=== PATIENT | female | born 1995 | race Two or more races ===

== ENCOUNTER → 2017-01-03 | Outpatient (REF) | payer OTHER | LOC: M SFHCLERA 12:44 | PROVIDERS: ATTEND Physician Assistant | DX: R30.0 Dysuria (principal) ==

== ENCOUNTER 2018-05-29 11:13 | Emergency (ER) | payer OTHER ==
[2018-05-29 11:52] LABS: KETONE, URINE AUTO RFX NEGATIVE (NEGATIVE); LEUKOCYTE ESTERASE UR AUTO RFX NEGATIVE (NEGATIVE); MUCUS, URINE RFX SMALL (NEGATIVE); NITRITE, URINE AUTO RFX NEGATIVE (NEGATIVE); RBC, URINE AUTO RFX 1 /HPF (0-3); SPECIFIC GRAVITY UR AUTO RFX 1.026 (1.002-1.035); SQUAM EPITHELIAL CELL UR AURFX 1 /HPF (0-6); WBC, URINE AUTO RFX 1 /HPF (0-3)
[2018-05-29 12:59] LABS: BASO % 0.7 % (0.0-1.0); EOS % 0.5 % (0.0-3.0); HEMATOCRIT 38.5 % (36.0-47.0); HEMOGLOBIN 12.6 g/dl (12.0-15.5); IMMATURE GRANULOCYTE % 0.3 % (0-3.0); LYMPH % 33.7 % (24.0-44.0); MEAN CORPUSCULAR HGB CONC 32.7 g/dl (32.0-36.5); MEAN CORPUSCULAR VOLUME 88.7 fl (80.0-96.0); MONO # 0.4 10^3/uL (0.0-0.8); MONO % 6.8 % (0.0-5.0); NEUTROPHILS # 3.5 10^3/uL (1.8-7.7); PLATELET COUNT, AUTOMATED 380 10^3/uL (150-450); RED BLOOD COUNT 4.34 10^6/uL (4.00-5.40); RED CELL DISTRIBUTION WIDTH 13.5 % (11.5-14.5)
[2018-05-29] MEDS: METOCLOPRAMIDE INJ 10MG/2ML VIAL (J2765) IV (13:08)
[2018-05-29] MEDS: ACETAMINOPHEN 325 MG TAB PO (13:09)
[2018-05-29] MEDS: diphenhydrAMINE INJ 50MG/ML VIAL (J1200) IV (13:09)
[2018-05-29] MEDS: NS 1,000 ML IV (13:10)
[2018-05-29 13:22] LABS: ANION GAP 6 MEQ/L (8-16); BLOOD UREA NITROGEN 11 MG/DL (7-18); CALCIUM LEVEL 9.4 MG/DL (8.5-10.1); CARBON DIOXIDE LEVEL 29 MEQ/L (21-32); CHLORIDE LEVEL 106 MEQ/L (98-107); CREATININE FOR GFR 0.68 MG/DL (0.55-1.30); GLOMERULAR FILTRATION RATE > 60.0 (>60); GLUCOSE, FASTING 74 MG/DL (70-100); POTASSIUM SERUM 3.7 MEQ/L (3.5-5.1); SODIUM LEVEL 141 MEQ/L (136-145)
[2018-05-29 15:29] LABS: CHLAMYDIA DNA AMPLIFICATION NEGATIVE (NEGATIVE); GC DNA AMPLIFICATION NEGATIVE (NEGATIVE)
== END 2018-05-29 15:07 | disposition home or self-care (01) ==
LOC: M ED 11:13
DX: N93.8 Other specified abnormal uterine and vaginal bleeding (principal); Z97.5 Presence of (intrauterine) contraceptive device; N83.291 Other ovarian cyst, right side; N80.9 Endometriosis, unspecified; Z88.6 Allergy status to analgesic agent
CPT/HCPCS: J1200

== ENCOUNTER 2018-07-25 11:16 | Emergency (ER) | payer OTHER ==
[2018-07-25 12:09] LABS: HEMATOCRIT 38.7 % (36.0-47.0); HEMOGLOBIN 12.7 g/dl (12.0-15.5); MEAN CORPUSCULAR HEMOGLOBIN 29.5 pg (27.0-33.0); MEAN CORPUSCULAR HGB CONC 32.8 g/dl (32.0-36.5); MEAN CORPUSCULAR VOLUME 89.8 fl (80.0-96.0); PLATELET COUNT, AUTOMATED 378 10^3/uL (150-450); RED BLOOD COUNT 4.31 10^6/uL (4.00-5.40); RED CELL DISTRIBUTION WIDTH 13.5 % (11.5-14.5); WHITE BLOOD COUNT 7.8 10^3/uL (4.0-10.0)
[2018-07-25 12:16] LABS: KETONE, URINE AUTO RFX NEGATIVE (NEGATIVE); LEUKOCYTE ESTERASE UR AUTO RFX NEGATIVE (NEGATIVE); MUCUS, URINE RFX SMALL (NEGATIVE); NITRITE, URINE AUTO RFX NEGATIVE (NEGATIVE); RBC, URINE AUTO RFX 0 /HPF (0-3); SPECIFIC GRAVITY UR AUTO RFX 1.025 (1.002-1.035); SQUAM EPITHELIAL CELL UR AURFX 4 /HPF (0-6); WBC, URINE AUTO RFX 1 /HPF (0-3)
[2018-07-25 12:34] LABS: ANION GAP 8 MEQ/L (8-16); BLOOD UREA NITROGEN 12 MG/DL (7-18); CALCIUM LEVEL 9.8 MG/DL (8.5-10.1); CARBON DIOXIDE LEVEL 24 MEQ/L (21-32); CHLORIDE LEVEL 107 MEQ/L (98-107); CREATININE FOR GFR 0.62 MG/DL (0.55-1.30); GLOMERULAR FILTRATION RATE > 60.0 (>60); GLUCOSE, FASTING 82 MG/DL (70-100); SODIUM LEVEL 139 MEQ/L (136-145)
[2018-07-25 13:48] LABS: CHLAMYDIA DNA AMPLIFICATION NEGATIVE (NEGATIVE); GC DNA AMPLIFICATION NEGATIVE (NEGATIVE)
== END 2018-07-25 14:01 | disposition home or self-care (01) ==
LOC: M ED 11:16
DX: B37.3 Candidiasis of vulva and vagina (principal); N83.01 Follicular cyst of right ovary; N80.9 Endometriosis, unspecified; Z88.8 Allergy status to other drugs, medicaments and biological substances; Z79.2 Long term (current) use of antibiotics
CPT/HCPCS: 76856

== ENCOUNTER → 2018-09-05 | Outpatient (REF) | payer OTHER ==
[2018-09-05 13:36] LABS: APPEARANCE, URINE CLEAR (CLEAR); BACTERIA, URINE AUTO NEGATIVE (NEGATIVE); BILIRUBIN, URINE AUTO NEGATIVE (NEGATIVE); BLOOD, URINE BLOOD NEGATIVE (NEGATIVE); COLOR, URINE YELLOW (YELLOW); GLUCOSE, URINE (UA) AUTO NEGATIVE (NEGATIVE); KETONE, URINE AUTO NEGATIVE (NEGATIVE); LEUKOCYTE ESTERASE, URINE AUTO NEGATIVE (NEGATIVE); MUCUS, URINE SMALL (NEGATIVE); NITRITE, URINE AUTO NEGATIVE (NEGATIVE); PROTEIN, URINE AUTO NEGATIVE (NEGATIVE); RBC, URINE AUTO 1 /HPF (0-3); SPECIFIC GRAVITY URINE AUTO 1.018 (1.002-1.035); SQUAMOUS EPITHELIAL CELL UR AU 2 /HPF (0-6); UROBILINOGEN, URINE AUTO 0.2 mg/dL (0.0-2.0); WBC, URINE AUTO 1 /HPF (0-3)
== END ==
LOC: M LAB REF 13:15
DX: N39.0 Urinary tract infection, site not specified (principal)

== ENCOUNTER → 2018-11-05 | Outpatient (CLI) | payer OTHER ==
[~2018-11-05] MED LIST: CIPR-249 PO; DIFL150T PO; DOXY200C PO; PYRI1TAB5 PO
[2018-11-05 18:08] LABS: BASO # 0.1 10^3/uL (0.0-0.2); BASO % 1.1 % (0.0-1.0); EOS # 0.1 10^3/uL (0.0-0.50); EOS % 0.8 % (0.0-3.0); HEMATOCRIT 37.9 % (36.0-47.0); HEMOGLOBIN 12.3 g/dl (12.0-15.5); LYMPH # 2.5 10^3/uL (1.5-6.5); LYMPH % 31.8 % (24.0-44.0); MEAN CORPUSCULAR HEMOGLOBIN 29.7 pg (27.0-33.0); MEAN CORPUSCULAR HGB CONC 32.5 g/dl (32.0-36.5); MEAN CORPUSCULAR VOLUME 91.5 fl (80.0-96.0); MONO # 0.4 10^3/uL (0.0-0.8); MONO % 5.3 % (0.0-5.0); NEUTROPHILS # 4.8 10^3/uL (1.8-7.7); NEUTROPHILS % 60.6 % (36.0-66.0); PLATELET COUNT, AUTOMATED 475 10^3/uL (150-450); RED BLOOD COUNT 4.14 10^6/uL (4.00-5.40)
[2018-11-05 18:15] LABS: ALBUMIN 3.6 GM/DL (3.2-5.2); ALT/SGPT 14 U/L (12-78); BILIRUBIN,TOTAL 0.5 MG/DL (0.2-1.0); BLOOD UREA NITROGEN 8 MG/DL (7-18); CALCIUM LEVEL 9.6 MG/DL (8.5-10.1); CARBON DIOXIDE LEVEL 29 MEQ/L (21-32); CHLORIDE LEVEL 104 MEQ/L (98-107); CREATININE FOR GFR 0.65 MG/DL (0.55-1.30); GLOMERULAR FILTRATION RATE > 60.0 (>60); GLUCOSE, FASTING 85 MG/DL (70-100); POTASSIUM SERUM 4.6 MEQ/L (3.5-5.1); RHEUMATOID FACTOR QUANT < 10.0 IU/ML (<15.0); SODIUM LEVEL 137 MEQ/L (136-145); THYROID STIMULATING HORMONE 0.631 uIU/ML (0.358-3.740); THYROXINE (T4) 9.8 UG/DL (4.5-12.0); TOTAL PROTEIN 7.8 GM/DL (6.4-8.2)
[2018-11-05 18:17] LABS: THYROGLOBULIN ANTIBODY 20.1 U/ML (<60.0); THYROID PEROXIDASE ANTIBODY < 28.0 U/ML (<60.0); TOTAL T3 114.3 NG/DL (60.0-181.0)
[2018-11-05 19:03] LABS: ERYTHROCYTE SEDIMENTATION RATE 36 mm/hr (0-20)
[2018-11-07 10:16] LABS: ANTINUCLEAR ANTIBODIES DIRECT Negative (Negative)
[2018-11-14 00:10] LABS: IGE RECEPTOR ABY 1 <2.4 (<10)
== END ==
LOC: M SMT 15:14
PROVIDERS: ATTEND Allergy & Immunology Allergy
DX: L50.1 Idiopathic urticaria (principal)

== ENCOUNTER → 2018-12-19 | Outpatient (REF) | payer OTHER ==
[~2018-12-19] MED LIST changes: +AMPI500C9; +CETI10TA; +NITR100C2; +PHEN-501
[2018-12-19 17:52] LABS: APPEARANCE, URINE CLOUDY (CLEAR); BACTERIA, URINE AUTO 1+ (NEGATIVE); BILIRUBIN, URINE AUTO NEGATIVE (NEGATIVE); BLOOD, URINE BLOOD NEGATIVE (NEGATIVE); CALCIUM OXALATE CRYSTALS SMALL; COLOR, URINE YELLOW (YELLOW); GLUCOSE, URINE (UA) AUTO NEGATIVE (NEGATIVE); KETONE, URINE AUTO NEGATIVE (NEGATIVE); LEUKOCYTE ESTERASE, URINE AUTO 2+ (NEGATIVE); MUCUS, URINE MODERATE (NEGATIVE); NITRITE, URINE AUTO NEGATIVE (NEGATIVE); PROTEIN, URINE AUTO NEGATIVE (NEGATIVE); RBC, URINE AUTO 2 /HPF (0-3); SPECIFIC GRAVITY URINE AUTO 1.019 (1.002-1.035); SQUAMOUS EPITHELIAL CELL UR AU 5 /HPF (0-6); UROBILINOGEN, URINE AUTO 0.2 mg/dL (0.0-2.0); WBC, URINE AUTO 2 /HPF (0-3)
== END ==
LOC: M LAB REF 16:23
PROVIDERS: ATTEND Physician Assistant
DX: N39.0 Urinary tract infection, site not specified (principal)

== ENCOUNTER 2018-12-22 19:29 | Emergency (ER) | payer OTHER ==
[~2018-12-22] VITALS: Ht 157.5 cm; Wt 45.9 kg
[~2018-12-22 19:29] MED LIST changes: -AMPI500C9; -CETI10TA; -NITR100C2; -PHEN-501
[2018-12-22 19:30] VITALS: BP 110/74
[2018-12-22] MEDS ORDERED: PHEN-501 (19:52)
[2018-12-22] MEDS ORDERED: AMPI500C9 (19:52)
[2018-12-22] MEDS ORDERED: NITR100C2 (19:52)
[2018-12-22] MEDS ORDERED: CETI10TA (19:52)
[2018-12-22 19:55] LABS: BILIRUBIN, URINE MANUAL OBSCURED (NEGATIVE); GLUCOSE, URINE (UA) MANUAL OBSCURED mg/dL (NEGATIVE); KETONE, URINE MANUAL OBSCURED mg/dL (NEGATIVE); UROBILINOGEN, URINE MANUAL OBSCURED mg/dl (NORMAL)
[2018-12-22 20:20] LABS: BACTERIA, URINE SMALL AMOUNT; CALCIUM OXALATE CRYSTALS,URINE SMALL AMOUNT /hpf; MUCUS, URINE LARGE AMOUNT (NEGATIVE); SQUAMOUS EPITHELIAL CELL URINE LARGE AMOUNT /hpf (SMALL AMT)
[2018-12-22 20:21] LABS: HYALINE CAST, URINE NONE SEEN /lpf (0-1)
== END 2018-12-22 20:16 | disposition home or self-care (01) ==
LOC: M ED 19:29
DX: N39.0 Urinary tract infection, site not specified (principal); N80.9 Endometriosis, unspecified; Z88.8 Allergy status to other drugs, medicaments and biological substances

== ENCOUNTER 2019-10-19 19:18 | Outpatient (CLI) | payer OTHER ==
[~2019-10-19] VITALS: Ht 157.5 cm; Wt 50.4 kg
[~2019-10-19 19:18] MED LIST changes: +AMPI500C9; +CETI10TA; +NITR100C2; +PHEN-501
[2019-10-19 19:36] VITALS: BP 106/64
[2019-10-19] MEDS ORDERED: MULTTAB20 PO (19:42)
--- NOTE | 2019-10-19 21:38 | IPNPDOC ---
Text Note Date of Service The patient was seen on 10/19/19. NOTE patient is a 24 yo @ 20+6wks presents to l&d with concern for abdominal cramping x 1 hr. patient denies abnormal vaginal discharge/itching. patient admits to not having drinking much fluids. urine usually dark yellow. vitals: normal NAD abd: gravid, soft, nt doptones: 150's toco: quiet speculum exam: copious white discharge, no lesion, difficulty to visualize cervix. TVUS: cervical length 5cm, T-shaped, no funneling, no dynamic changes wet prep: neg clue cells/trich stefany: neg buds/hyphae UA: concentrated with S..023, UA culture pending a/p patient with cramping, likely from lacking of fluids intake, no e/o labor or infection. return precautions given. f/u with regularly scheduled appointments. DO Kathrine VS,Canbone, I+O VS, Fishbone, I+O Vital Signs Date Time Temp Pulse Resp B/P (MAP) Pulse Ox O2 Delivery O2 Flow Rate FiO2 10/19/19 19:36 99.3 100 16 106/64 (78) LYLA CARVAJAL DO Oct 19, 2019 21:38
== END 2019-10-19 23:00 | disposition home or self-care (01) ==
LOC: M LDO 19:18 → MERGE 19:18 → M LDO 23:00
PROVIDERS: ATTEND Obstetrics & Gynecology
DX: O26.892 Other specified pregnancy related conditions, second trimester (principal); R10.9 Unspecified abdominal pain; Z3A.20 20 weeks gestation of pregnancy
CPT/HCPCS: 76815; 81001; 87086; G0378; G0463

== ENCOUNTER 2019-11-27 11:56 | Outpatient (CLI) | payer OTHER ==
[~2019-11-27] VITALS: Ht 157.5 cm; Wt 53.6 kg
[~2019-11-27 11:56] MED LIST changes: +MULTTAB20 PO
[2019-11-27 12:15] VITALS: BP 117/67
[2019-11-27 16:26] VITALS: BP 117/73
--- NOTE | 2019-11-27 16:41 | IPNPDOC ---
Text Note Date of Service The patient was seen on 11/27/19. NOTE Triage Note Julieth is a 24yo with SIUP at 26w3d by lmp c/w early u/s who presents today by instruction after calling triage nurse and reporting a fall at 1030 this morning. She notes walking down a staircase and falling onto her backside, sliding down 6 steps or so. Did not hit her abdomen. Has some pain where she hit on the steps, mostly in her lower back. No regular ctx. No LOF. No vaginal bleeding whatsoever. Feels good movement. Vitals wnl, afebrile General: WDWN, resting comfortably in bed Abdomen: soft, gravid, NTTP Back: tenderness with deep palpation over lower back but no crepitus Cat I FHRT with +accels, -decels, mod nicole for >4 hours [place]: no ctx Assessment: Julieth is a 24yo with SIUP at 26w3d by lmp c/w early u/s s/p fall down 6 steps onto her backside at 1030. Reassuring status and no ctx over >4hr of monitoring. Exam benign, vitals wnl. Plan: -safe for discharge home -tylenol, rest, warm bath/shower for comfort -good hydration -keep next regularly scheduled OB appt Dr. Maxine Mendoza MD VS,Ajay, I+O VSAjay I+O Vital Signs Date Time Temp Pulse Resp B/P (MAP) Pulse Ox O2 Delivery O2 Flow Rate FiO2 11/27/19 16:26 86 18 117/73 (88) 11/27/19 12:15 97.4 97.4 Maxine Mendoza MD Nov 27, 2019 16:41
== END 2019-11-27 16:30 | disposition home or self-care (01) ==
LOC: M LDO 11:56
PROVIDERS: ATTEND Obstetrics & Gynecology
DX: Z04.3 Encounter for examination and observation following other accident (principal); O26.892 Other specified pregnancy related conditions, second trimester; M54.5 Low back pain; W10.8XXA Fall (on) (from) other stairs and steps, initial encounter; Z3A.26 26 weeks gestation of pregnancy; Y99.8 Other external cause status; Y92.89 Other specified places as the place of occurrence of the external cause; Y93.89 Activity, other specified
CPT/HCPCS: G0378; G0463